=== PATIENT | female | born 1955 | race Caucasian/White ===

== ENCOUNTER → 2017-06-29 | Outpatient (CLI) | payer BC ==
[~2017-06-29] MED LIST: AMARYL4 MG PO; DIOVAN/HCT 12.51 TA1 PO; ESTRACE 1MG1 MG/TAB PO; ESTRADERM0.05 MG/24 TD; FLUOXETINE; GLUCOPHAGE850 MG/TAB PO; LEVEMIR100 U/ML SQ; LIPITOR 10MG10 MG PO; LOPID 600M600 MG/TAB PO; PRINIVIL20 MG PO; PROBIOTIC FORMU1 CAP PO; VIIBRYD40 MG PO
== END ==
LOC: MC.RAD 10:40
DX: Z12.31 Encounter for screening mammogram for malignant neoplasm of breast (principal)

== ENCOUNTER → 2018-11-10 | Outpatient (CLI) | payer MEDICARE, BC | LOC: MC.RAD 12:50 | DX: Z12.31 Encounter for screening mammogram for malignant neoplasm of breast (principal) ==

== ENCOUNTER 2019-11-15 10:15 | Outpatient (CLI) | payer MEDICARE, BC ==
[~2019-11-15] VITALS: Ht 157.5 cm; Wt 84.1 kg
[~2019-11-15 10:15] MED LIST changes: +ESTRACE0.5 MG PO; -ESTRADERM0.05 MG/24 TD; +GLUCOPHAGE500 MG/TAB PO; -GLUCOPHAGE850 MG/TAB PO
[2019-11-15] MEDS ORDERED: TRESIBA FL100 UNIT/1 SQ (10:28)
[2019-11-15] MEDS ORDERED: NOVOLOG FLEX100 U/ML SQ (10:30)
[2019-11-15] MEDS ORDERED: LIPITOR20 MG PO (10:30)
[2019-11-15] MEDS ORDERED: PROZAC 20MG20 MG PO (10:31)
[2019-11-15 10:34] VITALS: BP 137/84; PULSE 96; TEMP 98
[2019-11-15 12:19] VITALS: BP 119/71; PULSE 79
== END 2019-11-15 14:46 | disposition home or self-care (01) ==
LOC: EUO 10:15
DX: E86.0 Dehydration (principal)
CPT/HCPCS: J7030

== ENCOUNTER → 2020-05-02 | Outpatient (CLI) | payer MEDICARE, BC ==
[~2020-05-02] MED LIST changes: +LIPITOR20 MG PO; +NOVOLOG FLEX100 U/ML SQ; +PROZAC 20MG20 MG PO; +TRESIBA FL100 UNIT/1 SQ
== END ==
LOC: MC.RAD 14:55
DX: Z12.31 Encounter for screening mammogram for malignant neoplasm of breast (principal)

== ENCOUNTER 2021-01-02 11:15 | Inpatient (IN) | payer MEDICARE, BC ==
[~2021-01-02] VITALS: Ht 157.5 cm; Wt 83.8 kg
[2021-01-02 12:03] LABS: BASO % 0.2 % (0.0-2.0); GRAN % 68.4 % (42.2-75.2); HEMATOCRIT 38.9 % (37.0-47.0); HEMOGLOBIN 13.5 g/dl (12.5-16.0); LYMPH % 23.2 % (20.0-51.0); MEAN CELL VOLUME 87 fl (80.0-100.0); MEAN CORPUSCULAR HEMOGLOBIN 30 pg (27.0-31.0); MEAN CORPUSCULAR HGB CONC 35 g/dl (33.0-37.0); MEAN PLATELET VOLUME 10.3 fl (7.4-10.4); MONO # 0.4 (0.1-0.6); PLATELET COUNT 174 K/mm3 (130-400); RED BLOOD COUNT 4.45 M/mm3 (4.10-5.30); REDCELL DISTRIBUTION WIDTH-CV 11.7 % (11.5-14.5)
[2021-01-02 12:08] LABS: BILIRUBIN,TOTAL 0.8 mg/dL (0.0-1.0); CALCIUM 8.7 mg/dL (8.4-10.2); CREATININE, serum 0.79 (0.52-1.25); POTASSIUM 4.5 mmol/L (3.4-5.0); TOTAL PROTEIN 7.5 gm/dL (6.4-8.2)
[2021-01-02 15:45] VITALS: BP 138/42; PULSE 93; TEMP 98.5
[2021-01-02 16:35] LABS: C-REACTIVE PROTEIN 6.2 mg/dL (0.0-0.9); LACTATE DEHYDROGENASE 807 U/L (313-618)
[2021-01-02 16:44] LABS: TROPONIN-I < 0.012 ng/mL (0.000-0.035)
--- NOTE | 2021-01-02 18:39 | NUR ---
Patient alert and oriented. admitted from ER today due to SOA, malaise, hypoxia. Patient on 2L at 90% saturation. Patient report having fever at home. afebrile since admitted on Medical floor. NS 75mL/HR. ACHS. Patient have no question or concern at this time.
[2021-01-02 19:54] VITALS: BP 153/66; PULSE 70
[2021-01-02 20:48] VITALS: BP 132/58; PULSE 88; TEMP 98.2
[2021-01-03 00:11] VITALS: BP 123/51; PULSE 79; TEMP 98.1
--- NOTE | 2021-01-03 00:40 | NUR ---
Patient was sitting up in bed and finishing up her dinner upon enter the room at 19:40 pm. Patient ate 100% of dinner. Patient denies any chest pain or SOB while at rest. Respirations even and unlabored. No acute respiratory distress noted. Patient reports she gets SOB upon get up and ambulates in the room. Occasional non-productive cough noted at this time. Scheduled meds given per JAN. Call light within reach. Patient denies any needs at this time.
[2021-01-03 04:03] LABS: ARTERIAL BLD GAS O2 SATURATION 87.1 % (92-100); ARTERIAL BLD GAS TCO2 CT 22.6; ARTERIAL BLOOD GAS BASE EXCESS -2.3 (-2-2); ARTERIAL BLOOD GAS HCO3 21.5 meq/L (22-26); ARTERIAL BLOOD GAS PCO2 34.2 mmHg (35-45); ARTERIAL BLOOD GAS PO2 52.3 mmHg (80-100); ARTERIAL BLOOD GAS pH 7.42 (7.35-7.45)
[2021-01-03 04:54] VITALS: BP 139/68; PULSE 86; TEMP 98.2
--- NOTE | 2021-01-03 05:34 | NUR ---
Patient coughing on and off over the night. PRN cough med given per JAN. Called RT several times due to SPO2 drop to 86%.Currently on Airvo 50L and 74% Fio2. SPO2 93% at this time. Patient appears comfortable. Denies SOB or dyspnea. Call light within reach. Patient denies any needs at this time.
[2021-01-03 07:56] VITALS: BP 145/71; PULSE 82; TEMP 98
[2021-01-03 08:03] LABS: GRAN # 5.4 (1.4-6.5); GRAN % 84.8 % (42.2-75.2); HEMATOCRIT 35.5 % (37.0-47.0); HEMOGLOBIN 11.9 g/dl (12.5-16.0); LYMPH # 0.6 (1.2-3.4); LYMPH % 9.8 % (20.0-51.0); MEAN CELL VOLUME 90 fl (80.0-100.0); MEAN CORPUSCULAR HEMOGLOBIN 30 pg (27.0-31.0); MEAN CORPUSCULAR HGB CONC 34 g/dl (33.0-37.0); MEAN PLATELET VOLUME 9.9 fl (7.4-10.4); MONO # 0.3 (0.1-0.6); MONO % 5.1 % (1.7-9.3); PLATELET COUNT 226 K/mm3 (130-400); RED BLOOD COUNT 3.95 M/mm3 (4.10-5.30); REDCELL DISTRIBUTION WIDTH-CV 11.7 % (11.5-14.5)
[2021-01-03 08:32] LABS: CALCIUM 8.2 mg/dL (8.4-10.2); CREATININE, serum 0.73 (0.52-1.25); MAGNESIUM 1.7 mg/dL (1.6-2.3); POTASSIUM 4.8 mmol/L (3.4-5.0)
--- NOTE | 2021-01-03 11:15 | NUR ---
Regulatory Process Manager contacted patient's , Gerardo (ph#[phone]) to complete intake. Patient lives outside of [place] with her , daughter, and granddaughter. Patient sees Dr. Mcnair at [facility] for primary care and obtains medications at [facility] with no difficulties. Patient does not use any DME and is normally independent with ADLS. Gerardo believes patient completed DPOA-HC at [facility]. Gerardo also advised plan is for patient to return home upon discharge. ANAYA contacted Gerda at [facility] who will fax over DPOA-HC documents. Patient is currently on 50 liters of oxygen and ANAYA will continue to follow.
[2021-01-03 12:01] VITALS: BP 137/71; PULSE 87; TEMP 98
[2021-01-03 16:00] VITALS: BP 151/70; PULSE 92; TEMP 98.5
--- NOTE | 2021-01-03 19:11 | NUR ---
Odalys (CE) placed PICC in patient BOBBY. Patient had a ct chest for PE workup. Patient back in bed at this moment. patient report feeling exhausted after transfering for the procedure.
[2021-01-03 19:49] VITALS: BP 150/65; PULSE 94; TEMP 98.3
[2021-01-04 00:02] VITALS: BP 132/65; PULSE 92; TEMP 98.8
[2021-01-04 04:47] VITALS: BP 137/71; PULSE 87; TEMP 98.6
[2021-01-04 07:10] LABS: BASO % 0.1 % (0.0-2.0); GRAN # 9.9 (1.4-6.5); GRAN % 87.7 % (42.2-75.2); HEMOGLOBIN 11.3 g/dl (12.5-16.0); LYMPH # 0.7 (1.2-3.4); LYMPH % 6.4 % (20.0-51.0); MEAN CELL VOLUME 91 fl (80.0-100.0); MEAN CORPUSCULAR HEMOGLOBIN 30 pg (27.0-31.0); MEAN CORPUSCULAR HGB CONC 33 g/dl (33.0-37.0); MEAN PLATELET VOLUME 10.1 fl (7.4-10.4); MONO # 0.6 (0.1-0.6); PLATELET COUNT 266 K/mm3 (130-400); RED BLOOD COUNT 3.73 M/mm3 (4.10-5.30); REDCELL DISTRIBUTION WIDTH-CV 11.9 % (11.5-14.5)
[2021-01-04 07:27] LABS: CALCIUM 7.9 mg/dL (8.4-10.2); CREATININE, serum 0.85 (0.52-1.25); POTASSIUM 4.3 mmol/L (3.4-5.0)
[2021-01-04 07:35] LABS: HEMATOCRIT 33.8 % (37.0-47.0)
[2021-01-04 07:39] VITALS: BP 124/66; PULSE 85; TEMP 98.4
--- NOTE | 2021-01-04 08:45 | NUR ---
Shift assessment complete. Airvo at 50 lpm 67% with sats low to mid 90s. Reports SOA this AM, worse when up to restroom. Breathing at this time labored but normalized during assessment. Lung sounds coarse to upper lobes and diminished to lower lobes bilaterally. Heart RRR. A&Ox4. Right UA PICC w/good blood return and no S/S complication. Denies other needs at this time. Call light in reach.
[2021-01-04 11:56] VITALS: BP 130/66; PULSE 91; TEMP 98.9
[2021-01-04 16:28] VITALS: BP 145/66; PULSE 96; TEMP 99.1
--- NOTE | 2021-01-04 17:34 | NUR ---
Complained of severe headache this afternoon, completely relieved by tylenol. Also C/O some nausea relieved by zofran. Remains on airvo 50 lpm 67% with sats low 90s. Increased coughing throughout day, robitussin given.
[2021-01-04 20:24] VITALS: BP 146/58; PULSE 87; TEMP 98.5
[2021-01-05] VITALS (375 sets, daily range): BP systolic 90–184; BP diastolic 61–88; PULSE 78–101; TEMP 98.1–99.5; O2SAT 35–100
--- NOTE | 2021-01-05 02:57 | NUR ---
REPORT RECEIVED FROM DAY SHIFT NURSE. PT RESTING IN BED. O2 ON PER AIRVO. PICC WITH DUAL LUMENS IN UPPER RIGHT ARM. WRAPPED WITH GRACIE WRAP. SITE WITHOU S/S INFECTION. CALL LIGHT IN REACH.
--- NOTE | 2021-01-05 03:15 | NUR ---
SORT OF STRUGGLING WITH THE AIRVO AT 67%. SLIGHTLY EDEMATOUS ALL OVER. DENIES ANY NEEDS. SITS IN AN UPRIGHT POSITION ON HER BED. OCCASSIONAL DRY COUGH. CALL LIGHT IN REACH.
[2021-01-05 06:08] LABS: ARTERIAL BLD GAS O2 SATURATION 86.2 % (92-100); ARTERIAL BLD GAS TCO2 CT 20.7; ARTERIAL BLOOD GAS BASE EXCESS -3.8 (-2-2); ARTERIAL BLOOD GAS HCO3 19.7 meq/L (22-26); ARTERIAL BLOOD GAS PO2 49.7 mmHg (80-100); ARTERIAL BLOOD GAS pH 7.42 (7.35-7.45)
--- NOTE | 2021-01-05 10:14 | NUR ---
Assessment completed, alert/oriented, vital signs stable, patient reports not feeling any better today, lungs diminished throughtout/ no wheezing or crackles noted, she is on Airvo 60/90% and sats are >90%, she had low blood glucose this morning and required IV d50, stable now and has eaten breakfast, will continue to monitor, she denies needs
--- NOTE | 2021-01-05 14:10 | NUR ---
Arrived to ICU via wheel chair with RN and RT at side. Transfers to bed with SBA, monitor applied. With AirVo on, SpO2 70-74%. RT continues in room, switched to BiPap 15/07, rate 14, FiO2 100%. SpO2 now low 90's. Precedex drip started per Dr. Funk's order. Will re-evaluate
--- NOTE | 2021-01-05 14:57 | NUR ---
Orders for patient to transfer to ICU for Precedex gtt / continuous Bi-pap, I I have called and given report to receiving nurse PatriciaRN, respiratory therapy and myself transferred the patient to room ICU 06 by wheelchair and on bi-pap, checked blood sugar upon arrival as patient did not eat lunch and it was 55, I notifieid barrel filler head who advised to give 1/2 amp D50, patient cares handed off to ICU staff at this time
--- NOTE | 2021-01-05 17:13 | NUR ---
1625 Dr. Funk called with patient update, orders recieved from intubation. 1700 Patient agrees to intubation "I've got to do it to get better." RT and MIDLEVEL PROVIDER at bedside for procedure. 7.5 ET tube placed at 21 at teeth. + color change and breath sounds heard in all jnoes, condensation in tube. 1715 SpO2 60-70%, BP low. Levo orders recieved. Dr. Ruiz at bedside. Patient placed in reverse trendelenburg. Off vent and BVM used. 1745 BP stable at this time, IV sedation on at this time. Will continue to monior. 1802 Dr. Funk returns call to this RN. Reviewed events of intubation and BG result = 59. Given 1/2 Amp D50 and stop all insulin orders. Check BG Q2-3 hours until morning.
--- NOTE | 2021-01-05 17:15 | NUR ---
Sedation just started, no vacation at this time
--- NOTE | 2021-01-05 18:06 | NUR ---
PT INTUBATED WITH A 7.5 HI LO ET TUBE. PT SAT WAS LOW. AFTER ADMINISTERING LEVO AND DIPRIVAN AND SPO2 MONITORING ON THE FOREHEAD, WE WERE ABLE TO GET A GOOD SAT. PATIENT IS CURRENTLY RESTING ON THE VENBTILATOR AND STABLE.
[2021-01-05 19:43] LABS: ARTERIAL BLD GAS O2 SATURATION 90.9 % (92-100); ARTERIAL BLD GAS TCO2 CT 20.6; ARTERIAL BLOOD GAS HCO3 19.6 meq/L (22-26); ARTERIAL BLOOD GAS PO2 59.9 mmHg (80-100); ARTERIAL BLOOD GAS pH 7.37 (7.35-7.45)
--- NOTE | 2021-01-05 20:00 | NUR ---
Assessment complete. Pt is alert and responsive to voice on the ventilator. Follows commands appropriately. BOBBY PICC line infusing free of complications. Ritchie to DD is free of complications. Pt repositioned for comfort. Call light within reach.
[2021-01-06] VITALS (1008 sets, daily range): BP systolic 77–176; BP diastolic 46–84; PULSE 72–91; TEMP 97.6–98.6; O2SAT 67–100
[2021-01-06 05:39] LABS: ARTERIAL BLD GAS O2 SATURATION 89.2 % (92-100); ARTERIAL BLD GAS TCO2 CT 20.7; ARTERIAL BLOOD GAS HCO3 19.6 meq/L (22-26); ARTERIAL BLOOD GAS PO2 59.6 mmHg (80-100); ARTERIAL BLOOD GAS pH 7.37 (7.35-7.45)
[2021-01-06 06:09] LABS: BASO % 0.1 % (0.0-2.0); EOS % 0.1 % (0-4.0); GRAN # 12.6 (1.4-6.5); GRAN % 88.8 % (42.2-75.2); HEMOGLOBIN 11.8 g/dl (12.5-16.0); LYMPH # 0.8 (1.2-3.4); LYMPH % 5.7 % (20.0-51.0); MEAN CELL VOLUME 90 fl (80.0-100.0); MEAN CORPUSCULAR HEMOGLOBIN 31 pg (27.0-31.0); MEAN CORPUSCULAR HGB CONC 35 g/dl (33.0-37.0); MEAN PLATELET VOLUME 10.5 fl (7.4-10.4); MONO # 0.6 (0.1-0.6); MONO % 4.5 % (1.7-9.3); RED BLOOD COUNT 3.79 M/mm3 (4.10-5.30); REDCELL DISTRIBUTION WIDTH-CV 12.3 % (11.5-14.5)
[2021-01-06 06:12] LABS: ALBUMIN 2.8 gm/dL (3.5-5.0); BILIRUBIN,TOTAL 0.5 mg/dL (0.0-1.0); CALCIUM 7.5 mg/dL (8.4-10.2); CREATININE, serum 1.03 (0.52-1.25); MAGNESIUM 1.7 mg/dL (1.6-2.3); PHOSPHOROUS 4.1 mg/dL (2.5-4.5); POTASSIUM 4.6 mmol/L (3.4-5.0); TOTAL PROTEIN 5.8 gm/dL (6.4-8.2)
[2021-01-06 06:38] LABS: HEMATOCRIT 34.1 % (37.0-47.0)
[2021-01-06 06:39] LABS: PLATELET COUNT 134 K/mm3 (130-400)
--- NOTE | 2021-01-06 06:45 | NUR ---
Sedation vacation done this morning and pt is responsive to voice and follows commands.
--- NOTE | 2021-01-06 09:30 | NUR ---
CALLS FOR UPDATE. UPDATE GIVEN. DR. CELESTIN ON UNIT AND WILL SEE PATIENT SOON. IS TEARFUL DURING PHONE CALL. EMOTIONAL SUPPORT GIVEN AND HE IS ENCOURAGED TO CALL AGAIN FOR UPDATES ANY TIME.
--- NOTE | 2021-01-06 16:00 | NUR ---
UPDATE GIVEN TO . PATIENT REMAINS MAX FIO2 ON VENT WITH LEVOPHED TO SUPPORT THE BP. HE IS TEARFUL ON THE PHONE. EMOTIONAL SUPPORT GIVEN.
--- NOTE | 2021-01-06 17:00 | NUR ---
Sedation vacation not attempted this evening. Patient was not well sedated when coming on shift this morning. She woke very easily to any stimulation and responded appropriately to this RN when i spoke to her and asked her to do simple things. Throughout the shift, the patient was stacking her breaths on the ventilator, with high peak pressures. After increasing sedation, levophed had to be increased to help support low blood pressures. After adequately sedated, the patient continued to overbreathe the vent and cause it to alarm. PRN vecuronium administered per Dr. Funk order. Will continue to monitor.
--- NOTE | 2021-01-06 20:00 | NUR ---
Assessment complete. Pt is resting comfortably on ventilator. BOBBY PICC line infusing free of complications. Ritchie to DD is free of complications. Pt repositioned in bed for comfort. Call light within reach.
[2021-01-07] VITALS (1358 sets, daily range): BP systolic 85–141; BP diastolic 51–74; PULSE 64–97; TEMP 96.7–98; O2SAT 76–100
[2021-01-07 06:15] LABS: ALBUMIN 2.8 gm/dL (3.5-5.0); BILIRUBIN,TOTAL 0.4 mg/dL (0.0-1.0); CALCIUM 7.8 mg/dL (8.4-10.2); CREATININE, serum 1.13 (0.52-1.25); MAGNESIUM 2.1 mg/dL (1.6-2.3); PHOSPHOROUS 4.8 mg/dL (2.5-4.5); POTASSIUM 4.8 mmol/L (3.4-5.0); TOTAL PROTEIN 5.8 gm/dL (6.4-8.2)
[2021-01-07 06:26] LABS: ARTERIAL BLD GAS O2 SATURATION 95.6 % (92-100); ARTERIAL BLD GAS TCO2 CT 20.6; ARTERIAL BLOOD GAS BASE EXCESS -7.5 (-2-2); ARTERIAL BLOOD GAS HCO3 19.3 meq/L (22-26); ARTERIAL BLOOD GAS PCO2 43.6 mmHg (35-45); ARTERIAL BLOOD GAS PO2 85.1 mmHg (80-100); ARTERIAL BLOOD GAS pH 7.26 (7.35-7.45)
--- NOTE | 2021-01-07 06:49 | NUR ---
PT NOT ON WEANING TRIAL SHE DOES NOT QUALIFY FOR WEAN TRIAL PEEP AND FI02 IS TOO HIGH. PT ON DOCUMENTED SETTINGS YULIA WELL WITH NO DISTRESS NOTED AT THIS TIME
[2021-01-07 06:58] LABS: MEAN CELL VOLUME 90 fl (80.0-100.0); MEAN CORPUSCULAR HGB CONC 34 g/dl (33.0-37.0); MEAN PLATELET VOLUME 10.3 fl (7.4-10.4); PLATELET COUNT 70 K/mm3 (130-400); RED BLOOD COUNT 5.81 M/mm3 (4.10-5.30); REDCELL DISTRIBUTION WIDTH-CV 12.5 % (11.5-14.5)
[2021-01-07 06:59] LABS: HEMATOCRIT 52.5 % (37.0-47.0); HEMOGLOBIN 17.8 g/dl (12.5-16.0); MEAN CORPUSCULAR HEMOGLOBIN 31 pg (27.0-31.0)
[2021-01-07 08:02] LABS: BAND 1 % (0-10); LYMPHOCYTE 5 % (20.0-51.0); NEUTROPHILS 92 % (42.0-75.2)
[2021-01-07 08:03] LABS: PLATELET ESTIMATE DECREASED (NORMAL)
[2021-01-07 10:41] LABS: MEAN CELL VOLUME 90 fl (80.0-100.0); MEAN CORPUSCULAR HGB CONC 34 g/dl (33.0-37.0); MEAN PLATELET VOLUME 10.8 fl (7.4-10.4); PLATELET COUNT 129 K/mm3 (130-400); REDCELL DISTRIBUTION WIDTH-CV 12.3 % (11.5-14.5)
[2021-01-07 10:44] LABS: HEMATOCRIT 34.9 % (37.0-47.0); HEMOGLOBIN 11.8 g/dl (12.5-16.0); MEAN CORPUSCULAR HEMOGLOBIN 30 pg (27.0-31.0)
[2021-01-07 11:18] LABS: BAND 2 % (0-10); LYMPHOCYTE 1 % (20.0-51.0); METAMYELOCYTE 1 % (0-0); NEUTROPHILS 94 % (42.0-75.2)
[2021-01-07 11:19] LABS: PLATELET ESTIMATE DECREASED (NORMAL); TOXIC GRANULATION PRESENT
--- NOTE | 2021-01-07 12:42 | NUR ---
Chaplain hanna for patient while standing outside of door.
[2021-01-07 14:21] LABS: ARTERIAL BLD GAS O2 SATURATION 93.8 % (92-100); ARTERIAL BLD GAS TCO2 CT 19.5; ARTERIAL BLOOD GAS HCO3 18.1 meq/L (22-26); ARTERIAL BLOOD GAS PCO2 43.9 mmHg (35-45); ARTERIAL BLOOD GAS PO2 79.2 mmHg (80-100); ARTERIAL BLOOD GAS pH 7.23 (7.35-7.45)
--- NOTE | 2021-01-07 17:00 | NUR ---
No sedation vacation done at this time, as patient is prone. Did decrease sedation this morning and patient tolerated poorly
--- NOTE | 2021-01-07 20:00 | NUR ---
Assessment complete. Pt is prone and sedated on the ventilator. BOBBY PICC line infusing free of complications. RR artline is free of complications. Ritchie to DD is free of complications.
[2021-01-08] VITALS (1412 sets, daily range): BP systolic 87–125; BP diastolic 50–63; PULSE 74–99; TEMP 97.5–98.3; O2SAT 78–100
--- NOTE | 2021-01-08 01:10 | NUR ---
Convalescent plasma started at this time. Unit verified with BJ Tomlinson. Will remain at the bedside for the first 15 minutes to monitor for adverse reactions.
[2021-01-08 06:00] LABS: HEMOGLOBIN 10.6 g/dl (12.5-16.0); MEAN CELL VOLUME 91 fl (80.0-100.0); MEAN CORPUSCULAR HEMOGLOBIN 31 pg (27.0-31.0); MEAN CORPUSCULAR HGB CONC 34 g/dl (33.0-37.0); MEAN PLATELET VOLUME 11.2 fl (7.4-10.4); PLATELET COUNT 90 K/mm3 (130-400); RED BLOOD COUNT 3.46 M/mm3 (4.10-5.30); REDCELL DISTRIBUTION WIDTH-CV 12.4 % (11.5-14.5)
[2021-01-08 06:02] LABS: ARTERIAL BLD GAS O2 SATURATION 97.7 % (92-100); ARTERIAL BLOOD GAS BASE EXCESS -7.6 (-2-2); ARTERIAL BLOOD GAS HCO3 17.9 meq/L (22-26); ARTERIAL BLOOD GAS PCO2 36.5 mmHg (35-45); ARTERIAL BLOOD GAS PO2 109.3 mmHg (80-100); ARTERIAL BLOOD GAS pH 7.31 (7.35-7.45)
[2021-01-08 06:13] LABS: HEMATOCRIT 31.4 % (37.0-47.0)
[2021-01-08 06:18] LABS: CALCIUM 7.4 mg/dL (8.4-10.2); CREATININE, serum 0.89 (0.52-1.25); MAGNESIUM 2.1 mg/dL (1.6-2.3); POTASSIUM 4.7 mmol/L (3.4-5.0)
[2021-01-08 07:38] LABS: BAND 4 % (0-10); BURR CELLS 2+; LYMPHOCYTE 10 % (20.0-51.0); METAMYELOCYTE 1 % (0-0); NEUTROPHILS 84 % (42.0-75.2); OVALOCYTES 1+; PLATELET ESTIMATE DECREASED (NORMAL); TEAR DROP CELLS 1+
--- NOTE | 2021-01-08 09:00 | NUR ---
plaed on airvo 50l 69% spo2 92%
--- NOTE | 2021-01-08 19:46 | NUR ---
Received report from BJ Gomez. Patient in airborne precautions d/t positive covid status. Sedated and intubated and in prone position. VSS. All questions answered and all medications verified. Will resume care at this time.
[2021-01-09] VITALS (836 sets, daily range): BP systolic 93–150; BP diastolic 41–70; PULSE 76–112; TEMP 98.1–99; O2SAT 81–100
--- NOTE | 2021-01-09 05:38 | NUR ---
No sedation vacation attempted d/t patient being in prone position.
[2021-01-09 05:44] LABS: HEMOGLOBIN 10.5 g/dl (12.5-16.0); MEAN CELL VOLUME 92 fl (80.0-100.0); MEAN CORPUSCULAR HEMOGLOBIN 30 pg (27.0-31.0); MEAN CORPUSCULAR HGB CONC 33 g/dl (33.0-37.0); MEAN PLATELET VOLUME 10.7 fl (7.4-10.4); PLATELET COUNT 104 K/mm3 (130-400); RED BLOOD COUNT 3.47 M/mm3 (4.10-5.30); REDCELL DISTRIBUTION WIDTH-CV 12.4 % (11.5-14.5)
[2021-01-09 05:59] LABS: CALCIUM 7.9 mg/dL (8.4-10.2); CREATININE, serum 1.03 (0.52-1.25); MAGNESIUM 2.7 mg/dL (1.6-2.3); PHOSPHOROUS 4.1 mg/dL (2.5-4.5)
[2021-01-09 06:03] LABS: BAND 9 % (0-10); LYMPHOCYTE 2 % (20.0-51.0); NEUTROPHILS 87 % (42.0-75.2); PLATELET ESTIMATE DECREASED (NORMAL)
[2021-01-09 06:07] LABS: ARTERIAL BLOOD GAS PCO2 50.6 mmHg (35-45)
[2021-01-09 06:08] LABS: ARTERIAL BLD GAS O2 SATURATION 92.2 % (92-100); ARTERIAL BLD GAS TCO2 CT 25.7; ARTERIAL BLOOD GAS BASE EXCESS -2.6 (-2-2); ARTERIAL BLOOD GAS HCO3 24.2 meq/L (22-26)
--- NOTE | 2021-01-09 08:00 | NUR ---
Patient resting in bed prone. Repositioned to supine. Tolerated well. Patient drowsy, minimal response to stimuli. Assessment completed and charted.
[2021-01-09 13:59] LABS: ARTERIAL BLD GAS O2 SATURATION 94.5 % (92-100); ARTERIAL BLD GAS TCO2 CT 26.1; ARTERIAL BLOOD GAS BASE EXCESS -1.1 (-2-2); ARTERIAL BLOOD GAS HCO3 24.7 meq/L (22-26); ARTERIAL BLOOD GAS PO2 77.1 mmHg (80-100); ARTERIAL BLOOD GAS pH 7.35 (7.35-7.45)
--- NOTE | 2021-01-09 17:00 | NUR ---
Patient placed prone with assistance of PT and OT. Patient tolerated well.
--- NOTE | 2021-01-09 17:39 | NUR ---
Sedation vacation not done due to patient waking easily with stimulation. Patient tracks with eyes. Patient stacks breathing on ventilator when less sedated. Sedation vacation avoid this evening due to proning and wanting to keep patient comfortable during this process.
--- NOTE | 2021-01-09 17:48 | NUR ---
PT IS PRONE AT THIS TIME
--- NOTE | 2021-01-09 19:09 | NUR ---
Report given to BJ Newton
--- NOTE | 2021-01-09 20:00 | NUR ---
Assessment complete. Pt is on ventilator. BOBBY PICC line intact. Ritchie to DD is free of complications. Pt repositioned for comfort.
[2021-01-10] VITALS (637 sets, daily range): BP systolic 113–131; BP diastolic 60–69; PULSE 82–101; TEMP 98–100.6; O2SAT 87–100
--- NOTE | 2021-01-10 05:00 | NUR ---
NO SEDATION VACATION PERFORMED PT IS PRONE
[2021-01-10 05:34] LABS: MEAN CELL VOLUME 91 fl (80.0-100.0); MEAN CORPUSCULAR HGB CONC 33 g/dl (33.0-37.0); PLATELET COUNT 98 K/mm3 (130-400); REDCELL DISTRIBUTION WIDTH-CV 12.4 % (11.5-14.5)
[2021-01-10 05:36] LABS: HEMATOCRIT 29.9 % (37.0-47.0); HEMOGLOBIN 9.9 g/dl (12.5-16.0); MEAN CORPUSCULAR HEMOGLOBIN 30 pg (27.0-31.0)
[2021-01-10 05:45] LABS: ARTERIAL BLD GAS O2 SATURATION 94.1 % (92-100); ARTERIAL BLD GAS TCO2 CT 28.2; ARTERIAL BLOOD GAS BASE EXCESS 1.4 (-2-2); ARTERIAL BLOOD GAS HCO3 26.8 meq/L (22-26); ARTERIAL BLOOD GAS PCO2 45.8 mmHg (35-45); ARTERIAL BLOOD GAS PO2 74.7 mmHg (80-100); ARTERIAL BLOOD GAS pH 7.39 (7.35-7.45)
[2021-01-10 05:46] LABS: CALCIUM 8.1 mg/dL (8.4-10.2); CREATININE, serum 1.03 (0.52-1.25); MAGNESIUM 3.1 mg/dL (1.6-2.3); PHOSPHOROUS 3.9 mg/dL (2.5-4.5); POTASSIUM 4.9 mmol/L (3.4-5.0)
[2021-01-10 05:53] LABS: BAND 5 % (0-10); EOSINOPHIL 1 % (0-4); LYMPHOCYTE 8 % (20.0-51.0); NEUTROPHILS 84 % (42.0-75.2)
[2021-01-10 05:54] LABS: PLATELET ESTIMATE DECREASED (NORMAL)
--- NOTE | 2021-01-10 07:22 | NUR ---
Liliam report given to BJ Delgado.
[2021-01-10 12:28] LABS: MUCOUS Present /lpf; PH 6 (5-8); SQUAMOUS EPITHELIAL None Seen /hpf; URINE APPEARANCE Clear; URINE BACTERIA Rare /hpf; URINE BILIRUBIN Negative (NEGATIVE); URINE BLOOD Negative (NEGATIVE); URINE COLOR Yellow; URINE GLUCOSE Negative (NEGATIVE); URINE KETONE Negative (NEGATIVE); URINE LEUKOCYTE ESTERASE Negative (NEGATIVE); URINE NITRATE Negative (NEGATIVE); URINE PROTEIN(semi-quant) Negative (NEGATIVE); URINE UROBILINOGEN Negative (NEGATIVE); URINE WBC 0-2 /hpf
[2021-01-10 12:33] LABS: COLLECTION METHOD CATHETER
[2021-01-10 12:38] LABS: URINE PROTEIN:CREAT RATIO 0.13 (0.00-0.14)
--- NOTE | 2021-01-10 19:00 | NUR ---
Report given to BJ Newton .
--- NOTE | 2021-01-10 20:00 | NUR ---
Assessment complete. Pt is on ventilator. BOBBY PICC line intact. Ritchie to DD is free of complications. Pt repositioned for comfort. Call light within reach.
[2021-01-11] VITALS (1422 sets, daily range): BP systolic 114–143; BP diastolic 63–73; PULSE 80–118; TEMP 96–100.2; O2SAT 70–100
--- NOTE | 2021-01-11 | NUR ---
TF HELD DUE TO HIGH RESIDUAL
--- NOTE | 2021-01-11 05:00 | NUR ---
NO SEDATION VACATION PERFORMED THE PT IS PRONE
[2021-01-11 05:29] LABS: MEAN CELL VOLUME 91 fl (80.0-100.0); MEAN CORPUSCULAR HGB CONC 33 g/dl (33.0-37.0); MEAN PLATELET VOLUME 11.4 fl (7.4-10.4); PLATELET COUNT 105 K/mm3 (130-400); RED BLOOD COUNT 3.08 M/mm3 (4.10-5.30); REDCELL DISTRIBUTION WIDTH-CV 12.2 % (11.5-14.5)
[2021-01-11 05:33] LABS: HEMOGLOBIN 9.3 g/dl (12.5-16.0); MEAN CORPUSCULAR HEMOGLOBIN 30 pg (27.0-31.0)
[2021-01-11 05:37] LABS: CALCIUM 8.2 mg/dL (8.4-10.2); CREATININE, serum 0.93 (0.52-1.25); MAGNESIUM 3.4 mg/dL (1.6-2.3); PHOSPHOROUS 4.4 mg/dL (2.5-4.5); POTASSIUM 4.8 mmol/L (3.4-5.0)
[2021-01-11 05:47] LABS: ARTERIAL BLD GAS O2 SATURATION 96.7 % (92-100); ARTERIAL BLD GAS TCO2 CT 24.9; ARTERIAL BLOOD GAS BASE EXCESS -0.8 (-2-2); ARTERIAL BLOOD GAS HCO3 23.7 meq/L (22-26); ARTERIAL BLOOD GAS PCO2 38.5 mmHg (35-45); ARTERIAL BLOOD GAS PO2 95.7 mmHg (80-100); ARTERIAL BLOOD GAS pH 7.41 (7.35-7.45)
[2021-01-11 05:48] LABS: BAND 14 % (0-10); EOSINOPHIL 1 % (0-4); LYMPHOCYTE 4 % (20.0-51.0); METAMYELOCYTE 1 % (0-0); NEUTROPHILS 79 % (42.0-75.2); PLATELET ESTIMATE DECREASED (NORMAL)
[2021-01-11 05:49] LABS: SCHISTOCYTES 1+
--- NOTE | 2021-01-11 07:10 | NUR ---
Bedside shift report given to BJ Delgado.
--- NOTE | 2021-01-11 07:12 | NUR ---
PT ON DOCUMENTED SETTINGS YULIA WELL WITH NO DISTRESS NOTED AT THIS TIME
--- NOTE | 2021-01-11 19:20 | NUR ---
Received report from BJ Delgado.
--- NOTE | 2021-01-11 19:21 | NUR ---
Report given to BJ Farrell. care relinquished at this time.
--- NOTE | 2021-01-11 21:54 | NUR ---
Tube feed residuals at this time total 125mL. Feeds increased from 30mL/hr to goal of 40mL/hr.
[2021-01-12] VITALS (1105 sets, daily range): BP systolic 128–162; BP diastolic 65–90; PULSE 83–118; TEMP 97.2–100.6; O2SAT 60–100
[2021-01-12 05:17] LABS: ARTERIAL BLD GAS O2 SATURATION 91.4 % (92-100); ARTERIAL BLD GAS TCO2 CT 30.6; ARTERIAL BLOOD GAS BASE EXCESS 4.1 (-2-2); ARTERIAL BLOOD GAS HCO3 29.2 meq/L (22-26); ARTERIAL BLOOD GAS PCO2 45.9 mmHg (35-45); ARTERIAL BLOOD GAS PO2 63.6 mmHg (80-100); ARTERIAL BLOOD GAS pH 7.42 (7.35-7.45)
--- NOTE | 2021-01-12 05:17 | NUR ---
Patient in prone position. No sedation vacation performed.
--- NOTE | 2021-01-12 05:41 | NUR ---
Spoke with [facility] physician, Dr. Mannie Deleon, regarding patient's blood glucose > 300 at 2000, 0000, and 0400. Patient has received 10 units of Novolog per sliding-scale orders at each check, with little to no effect. This RN initiated discussion of possibly initiating insulin drip. Per Dr. Deleon, to administer 10 units of Levemir once, now; do not initiate insulin drip at this time.
[2021-01-12 05:43] LABS: HEMOGLOBIN 10.1 g/dl (12.5-16.0); MEAN CELL VOLUME 94 fl (80.0-100.0); MEAN CORPUSCULAR HEMOGLOBIN 30 pg (27.0-31.0); MEAN CORPUSCULAR HGB CONC 32 g/dl (33.0-37.0); MEAN PLATELET VOLUME 12.1 fl (7.4-10.4); PLATELET COUNT 113 K/mm3 (130-400); RED BLOOD COUNT 3.37 M/mm3 (4.10-5.30); REDCELL DISTRIBUTION WIDTH-CV 12.2 % (11.5-14.5)
[2021-01-12 05:48] LABS: HEMATOCRIT 31.7 % (37.0-47.0)
[2021-01-12 05:59] LABS: CALCIUM 8.3 mg/dL (8.4-10.2); CREATININE, serum 0.77 (0.52-1.25); MAGNESIUM 2.9 mg/dL (1.6-2.3); PHOSPHOROUS 4.3 mg/dL (2.5-4.5); POTASSIUM 5.6 mmol/L (3.4-5.0)
[2021-01-12 07:07] LABS: BAND 21 % (0-10); LYMPHOCYTE 7 % (20.0-51.0); NEUTROPHILS 70 % (42.0-75.2); PLATELET ESTIMATE DECREASED (NORMAL)
--- NOTE | 2021-01-12 07:32 | NUR ---
Report given to BJ Ruvalcaba, and BJ Pascual.
--- NOTE | 2021-01-12 08:30 | NUR ---
Resting in bed. Tolerating vent. Assessment completed and charted. Recently turned from prone position. Will monitor.
--- NOTE | 2021-01-12 12:06 | NUR ---
Patient propofol increased due to stacking breaths and setting off alarms on ventilator.
--- NOTE | 2021-01-12 19:28 | NUR ---
Report given to Jami LORENZO
--- NOTE | 2021-01-12 19:45 | NUR ---
Received report from BJ Pascual. Patient in prone position, tolerating position and ventilator well. Vitals within normal limits. Patient repositioned with assistance of RT. No further needs noted.
[2021-01-13] VITALS (1060 sets, daily range): BP systolic 81–153; BP diastolic 58–82; PULSE 89–131; TEMP 98.4–100.7; O2SAT 73–100
--- NOTE | 2021-01-13 01:00 | NUR ---
Patient's last five hourly BG checks within goal range of 140-180; no titration required according to order set. Checks will be reduced to every two hours, with the next occuring at 0230.
--- NOTE | 2021-01-13 05:00 | NUR ---
Patient prone; no sedation vacation performed at this time.
[2021-01-13 05:01] LABS: ARTERIAL BLD GAS O2 SATURATION 86.7 % (92-100); ARTERIAL BLD GAS TCO2 CT 31.4; ARTERIAL BLOOD GAS BASE EXCESS 5.1 (-2-2); ARTERIAL BLOOD GAS PCO2 45.5 mmHg (35-45); ARTERIAL BLOOD GAS PO2 52.5 mmHg (80-100); ARTERIAL BLOOD GAS pH 7.44 (7.35-7.45)
[2021-01-13 06:58] LABS: HEMATOCRIT 31.3 % (37.0-47.0); HEMOGLOBIN 9.9 g/dl (12.5-16.0); MEAN CELL VOLUME 95 fl (80.0-100.0); MEAN CORPUSCULAR HEMOGLOBIN 30 pg (27.0-31.0); MEAN CORPUSCULAR HGB CONC 32 g/dl (33.0-37.0); MEAN PLATELET VOLUME 12.3 fl (7.4-10.4); PLATELET COUNT 125 K/mm3 (130-400); RED BLOOD COUNT 3.31 M/mm3 (4.10-5.30); REDCELL DISTRIBUTION WIDTH-CV 12.3 % (11.5-14.5)
[2021-01-13 07:02] LABS: CALCIUM 8.2 mg/dL (8.4-10.2); CREATININE, serum 0.85 (0.52-1.25); MAGNESIUM 2.7 mg/dL (1.6-2.3); PHOSPHOROUS 4.8 mg/dL (2.5-4.5); POTASSIUM 5.3 mmol/L (3.4-5.0)
[2021-01-13 07:20] LABS: BAND 41 % (0-10); EOSINOPHIL 6 % (0-4); LYMPHOCYTE 5 % (20.0-51.0); MYELOCYTE 1 % (0-0); NEUTROPHILS 42 % (42.0-75.2); PLATELET ESTIMATE DECREASED (NORMAL)
--- NOTE | 2021-01-13 09:15 | NUR ---
Assessment completed and charted. Patient repositioned. Will continue to monitor.
--- NOTE | 2021-01-13 12:45 | NUR ---
Dr. Valdovinos has extensive talk with , Gerardo, on the phone about this patient. He explains all the therapies and efforts made to improve her condition. He also explains her prognosis at this point and time and what a code situation would do to her and what her probable outcome would be. It is decided that the patient will be DNR from this time.
[2021-01-13 14:05] LABS: COLLECTION METHOD CATHETER
[2021-01-13 14:32] LABS: AMORPHOUS CRYSTAL Present /uL; MUCOUS Present /lpf; PH 5 (5-8); SQUAMOUS EPITHELIAL 0-2 /hpf; URINE APPEARANCE Cloudy; URINE BACTERIA Rare /hpf; URINE BILIRUBIN Negative (NEGATIVE); URINE BLOOD 3+ (NEGATIVE); URINE COLOR Amber; URINE GLUCOSE Negative (NEGATIVE); URINE KETONE Negative (NEGATIVE); URINE LEUKOCYTE ESTERASE Negative (NEGATIVE); URINE NITRATE Negative (NEGATIVE); URINE PROTEIN(semi-quant) 2+ (NEGATIVE); URINE RBC >50 /hpf; URINE UROBILINOGEN Negative (NEGATIVE)
--- NOTE | 2021-01-13 17:17 | NUR ---
Profopol stopped at 1230 and fentanyl stopped at 1630. Patient opens eyes no other response at this time. Will leave sedation off to assess for possible CT per Dr. Valdovinos.
--- NOTE | 2021-01-13 21:00 | NUR ---
Flutters eyes when name is called and minimal response to pain noted. Otherwise does not respond purposefully to any questions or commands.
--- NOTE | 2021-01-13 21:55 | NUR ---
CHANGED TO HME HUMIDIFICATION AT THIS TIME.
[2021-01-14] VITALS (1411 sets, daily range): BP systolic 98–195; BP diastolic 59–91; PULSE 105–130; TEMP 98.9–100.9; O2SAT 73–100
--- NOTE | 2021-01-14 00:11 | NUR ---
Patient breath stacking and Peak pressures up to 40 and venitlator occasionally alarming "high peak pressure". PRN vecuronium administered at this time. Will continue to monitor.
--- NOTE | 2021-01-14 02:25 | NUR ---
Patient's o2 82-85%. RT at bedside. Sunni notified ; will obtain and xray, ABG and can administer an additional dose of vecuronium at this time.
[2021-01-14 02:26] LABS: ARTERIAL BLD GAS TCO2 CT 32.1; ARTERIAL BLOOD GAS BASE EXCESS 4.9 (-2-2); ARTERIAL BLOOD GAS HCO3 30.6 meq/L (22-26); ARTERIAL BLOOD GAS PCO2 50.3 mmHg (35-45); ARTERIAL BLOOD GAS PO2 55.9 mmHg (80-100)
--- NOTE | 2021-01-14 04:41 | NUR ---
T100.7; urine sample showing urine WBC 20-50. Sunni jauregui notified; will initiate antibiotic coverage and urine culture at this time.
--- NOTE | 2021-01-14 05:00 | NUR ---
Sedation vacation not performed due to receiving IV PRN vecuronium push recently.
[2021-01-14 05:28] LABS: BASO % 0.1 % (0.0-2.0); EOS # 0.2 (0.0-0.7); EOS % 1.4 % (0-4.0); GRAN # 11.2 (1.4-6.5); GRAN % 89.1 % (42.2-75.2); HEMATOCRIT 33.8 % (37.0-47.0); HEMOGLOBIN 10.1 g/dl (12.5-16.0); LYMPH # 0.8 (1.2-3.4); LYMPH % 6.4 % (20.0-51.0); MEAN CORPUSCULAR HEMOGLOBIN 30 pg (27.0-31.0); MEAN CORPUSCULAR HGB CONC 30 g/dl (33.0-37.0); MEAN PLATELET VOLUME 12.4 fl (7.4-10.4); MONO # 0.2 (0.1-0.6); MONO % 1.8 % (1.7-9.3); PLATELET COUNT 118 K/mm3 (130-400); RED BLOOD COUNT 3.33 M/mm3 (4.10-5.30); REDCELL DISTRIBUTION WIDTH-CV 12.6 % (11.5-14.5)
[2021-01-14 05:29] LABS: MEAN CELL VOLUME 102 fl (80.0-100.0)
[2021-01-14 05:35] LABS: ALBUMIN 2.7 gm/dL (3.5-5.0); BILIRUBIN,TOTAL 0.5 mg/dL (0.0-1.0); CALCIUM 8.1 mg/dL (8.4-10.2); CREATININE, serum 1.06 (0.52-1.25); MAGNESIUM 2.7 mg/dL (1.6-2.3); PHOSPHOROUS 5.5 mg/dL (2.5-4.5); POTASSIUM 4.4 mmol/L (3.4-5.0); TOTAL PROTEIN 6.1 gm/dL (6.4-8.2)
[2021-01-14 05:42] LABS: PRE ALBUMIN 10.1 mg/dL (17.6-36.0)
[2021-01-14 05:47] LABS: ARTERIAL BLD GAS O2 SATURATION 94.2 % (92-100); ARTERIAL BLOOD GAS BASE EXCESS 2.9 (-2-2); ARTERIAL BLOOD GAS HCO3 29.4 meq/L (22-26); ARTERIAL BLOOD GAS PCO2 54.3 mmHg (35-45); ARTERIAL BLOOD GAS PO2 76.1 mmHg (80-100); ARTERIAL BLOOD GAS pH 7.35 (7.35-7.45)
--- NOTE | 2021-01-14 14:32 | NUR ---
Miya Mills, social work msw, and palliative care nurse called on speaker phone to talk with Gerardo, , about goals of care and pt guarded to poor prognosis. She was made a DNR over the weekend after talked with Dr Valdovinos. Gerardo was very quick to say that he does not want her to suffer unnecessarily but is not ready to "give up" on her. The will have been 49 years in February. He has been talking with her family and their children as things have progressed. Currently he would like to continue care as is. He does understand that she is not responding as well neurologically as we would hope and that her 02 demand is at 100%. We did talk about that her length of recovery would span multiple months if she is able to get past her current state. he does realize that we are doing everything that we can to promote her recovery but that things are not improving. He will continue to check in regularly but wants to keep trying for a while longer.
--- NOTE | 2021-01-14 14:39 | NUR ---
Dividend Clerk confirmed that patient's DPOA-HC document was on patient's chart. Gerardo Hopkins () and Luis Hopkins are designated. Palliative consult was ordered for patient. ANAYA and Palliative RN, Lolis contacted patient's , Gerardo to discuss goals of care. Gerardo advised he is not sure what his decision is at this point and isn't sure he wants to give up yet. Gerardo states he has been consulting his children and patient's siblings. ANAYA will continue to follow.
--- NOTE | 2021-01-14 17:00 | NUR ---
No sedation vacation at this time, had to increase Versed dose prior to proning and PRN Vec dose given.
--- NOTE | 2021-01-14 19:20 | NUR ---
Report received from BJ Gomez. Patient care transfered.
[2021-01-15] VITALS (1327 sets, daily range): BP systolic 81–154; BP diastolic 52–97; PULSE 98–131; TEMP 98–99.4; O2SAT 81–100
--- NOTE | 2021-01-15 00:10 | NUR ---
PRN vecuronium administered due to stacked breaths and elevated peak pressures. RT notified.
[2021-01-15 04:17] LABS: ARTERIAL BLD GAS TCO2 CT 32.6; ARTERIAL BLOOD GAS BASE EXCESS 4.4 (-2-2); ARTERIAL BLOOD GAS HCO3 30.8 meq/L (22-26); ARTERIAL BLOOD GAS PCO2 56.6 mmHg (35-45); ARTERIAL BLOOD GAS PO2 52.8 mmHg (80-100); ARTERIAL BLOOD GAS pH 7.35 (7.35-7.45)
[2021-01-15 05:41] LABS: BASO % 0.2 % (0.0-2.0); EOS # 0.2 (0.0-0.7); EOS % 2.1 % (0-4.0); GRAN # 8.7 (1.4-6.5); LYMPH # 0.5 (1.2-3.4); LYMPH % 5.4 % (20.0-51.0); MEAN CELL VOLUME 100 fl (80.0-100.0); MEAN CORPUSCULAR HGB CONC 30 g/dl (33.0-37.0); MEAN PLATELET VOLUME 12.3 fl (7.4-10.4); MONO # 0.2 (0.1-0.6); MONO % 2.4 % (1.7-9.3); PLATELET COUNT 109 K/mm3 (130-400); RED BLOOD COUNT 3.03 M/mm3 (4.10-5.30); REDCELL DISTRIBUTION WIDTH-CV 12.8 % (11.5-14.5)
[2021-01-15 05:47] LABS: HEMATOCRIT 30.4 % (37.0-47.0); MEAN CORPUSCULAR HEMOGLOBIN 30 pg (27.0-31.0)
[2021-01-15 05:54] LABS: CALCIUM 8.2 mg/dL (8.4-10.2); CREATININE, serum 1.39 (0.52-1.25); MAGNESIUM 2.6 mg/dL (1.6-2.3); PHOSPHOROUS 5.2 mg/dL (2.5-4.5); POTASSIUM 4.3 mmol/L (3.4-5.0)
--- NOTE | 2021-01-15 05:55 | NUR ---
Sedation vacation not performed due to being proned.
--- NOTE | 2021-01-15 07:24 | NUR ---
Report given to BJ Gomez. Patient care transfered.
--- NOTE | 2021-01-15 07:26 | NUR ---
Report given to BJ Gomez. Patient care transfered.
--- NOTE | 2021-01-15 10:50 | NUR ---
Spouse, Gerardo, here to visit. Chaplain Freed and Lolis Rodrigez RN in with patient and spouse. Emotional support provided and questions answered.
--- NOTE | 2021-01-15 11:18 | NUR ---
Initial visit; Prayer request by Gerardo for Emilie and their family. Life Skills Coach also offered the 23rd Psalm. Family knows Life Skills Coach is available for follow-up.
--- NOTE | 2021-01-15 14:18 | NUR ---
During rounds, Dr. Valdovinos and Lolis, Palliative RN contacted patient's , Gerardo to provide update. The team offered to have Gerardo visit patient and Gerardo advised he isn't sure at this time if he wants to see patient in this condition. Later that morning, Gerardo contacted ANAYA to advise he was in the ED parking lot and wanted to see patient. ANAYA notified BJ Gomez who met patient in the ED and brought him into the ICU. ANAYA will continue to follow.
--- NOTE | 2021-01-15 14:31 | NUR ---
Phone call with Gerardo made by Dr Valdovinos and I also participated. Gerardo is aware that Emilie is not doing well, is not showing improvement and is at near maximum levels of support. Gerardo was offered the chance to come in to see Emilie which he initially declined but then later showed up and did visit her. He did not think that she "even knew I was there". Support was provided by chaplain Rasta, and also his nurse Patricia and this nurse Lolis. We did talk about that we do reach a point where we are no longer supporting her fight and instead we are prolonging her suffering. Gerardo did acknowledge this but states he wants to talk with his children again before making a decision. When he reaches a decision, he will call and talk with her nurse. Support provided. Reinforced that this is a difficult decision and one that he needs to be sure of.
--- NOTE | 2021-01-15 18:30 | NUR ---
Have spoken with spouse on and off this afternoon. Called at this time to let him know [facility] declined patient transfer at this time. This RN was notified by Dr. Valdovinos. Also let spouse, Gerardo, know someone dropped off a card with wilkes in it for him. Agreed with putting it in the safe and will nut picker tomorrow. Will call before coming to nut picker.
--- NOTE | 2021-01-15 22:35 | NUR ---
Levophed initiated due to MAP's consistenly below 65. Will continue to monitor.
[2021-01-16] VITALS (791 sets, daily range): BP systolic 93–120; BP diastolic 52–73; PULSE 98–119; TEMP 97.8–100.6; O2SAT 30–100
[2021-01-16 05:03] LABS: MEAN CELL VOLUME 99 fl (80.0-100.0); MEAN CORPUSCULAR HGB CONC 30 g/dl (33.0-37.0); MEAN PLATELET VOLUME 12.6 fl (7.4-10.4); PLATELET COUNT 104 K/mm3 (130-400); RED BLOOD COUNT 2.98 M/mm3 (4.10-5.30); REDCELL DISTRIBUTION WIDTH-CV 12.8 % (11.5-14.5)
[2021-01-16 05:08] LABS: HEMATOCRIT 29.5 % (37.0-47.0); HEMOGLOBIN 8.9 g/dl (12.5-16.0); MEAN CORPUSCULAR HEMOGLOBIN 30 pg (27.0-31.0)
--- NOTE | 2021-01-16 05:09 | NUR ---
Sedation vacation not performed due to being proned.
[2021-01-16 05:13] LABS: CALCIUM 8.3 mg/dL (8.4-10.2); CREATININE, serum 1.94 (0.52-1.25); POTASSIUM 3.6 mmol/L (3.4-5.0)
[2021-01-16 05:50] LABS: BAND 24 % (0-10); LYMPHOCYTE 11 % (20.0-51.0); NEUTROPHILS 61 % (42.0-75.2)
[2021-01-16 05:51] LABS: HYPOCHROMIA 3+; PLATELET ESTIMATE DECREASED (NORMAL)
[2021-01-16 06:04] LABS: ARTERIAL BLD GAS O2 SATURATION 93.2 % (92-100); ARTERIAL BLOOD GAS BASE EXCESS 4.1 (-2-2); ARTERIAL BLOOD GAS HCO3 29.4 meq/L (22-26); ARTERIAL BLOOD GAS PCO2 49.3 mmHg (35-45); ARTERIAL BLOOD GAS PO2 71.1 mmHg (80-100); ARTERIAL BLOOD GAS pH 7.39 (7.35-7.45)
--- NOTE | 2021-01-16 06:53 | NUR ---
PT DOESNT QUALIFY FOR WEAN TRIAL AT THIS TIME PT ON TOO HIGH OF SETTINGS. PT ON DOCUMENTED SETTINGS YULIA WELL WITH NO DISTRESS NOTED AT THIS TIME.
--- NOTE | 2021-01-16 07:31 | NUR ---
Report given to BJ Nelson and BJ Woods. Patient care transfered.
--- NOTE | 2021-01-16 09:15 | NUR ---
Contacted by nursing staff for PICC dressing change. upper edge of dressing not intact. insertion site dressing intact. PICC dressing change done with sterile technique right upper arm sterile dressing change done with insertion site cleansed with chloraprep x 1, chlorhexidine impregnate disk applied, skin prep, stat lock, and tegaderm applied. bilateral arms swollen. right hand swollen.
--- NOTE | 2021-01-16 10:06 | NUR ---
Phone call placed to Gerardo Hopkins regarding his decision regarding Emilie's care. He did agree to talk with his children about a family video call and will call back if this is something he desires. Shayna did give him an update on Emilie's status today as she is now requiring pressors, worsening kidney function, and continued high 02 and pressure needs.
--- NOTE | 2021-01-16 13:07 | NUR ---
Llois, Palliative RN and Shayna, ICU Director contacted patient's Gerardo to provide update. Gerardo advised patient's children are still wanting patient to fight and get better. Shayna suggested a zoom meeting so that the children can see the patient. Gerardo advised he will talk with his kids and follow up.
--- NOTE | 2021-01-16 13:30 | NUR ---
Spoke to Gerardo, patients . He had questions about comfort care measures. They were explained to him and he said he will be talking to his children so they can make a decsion today.
--- NOTE | 2021-01-16 14:08 | NUR ---
Notified that patients axillary temp was 100.6. Will continue to monitor at this time/.
--- NOTE | 2021-01-16 17:30 | NUR ---
SPoke to Gerardo, patients , he decided to go proceed with comfort care measures tonight. He said he could be at the hospital in about an hour. Notified , , ICU charge nurse and Shayna. is ordering comfort care medications.
--- NOTE | 2021-01-16 18:04 | NUR ---
PATIENT WILL BE GOING COMFORT CARE SOON.
--- NOTE | 2021-01-16 18:25 | NUR ---
Gerardo, patients here. GAve him a new mask, helped him appropriately don a gown and gloves and walked him into room.
--- NOTE | 2021-01-16 18:47 | NUR ---
RT at bedside. IV gtts turned off, PRN morphine and ativan given. Patient extubated by RT.
--- NOTE | 2021-01-16 19:02 | NUR ---
Time of confirmed with BJ Woods.
--- NOTE | 2021-01-16 19:10 | NUR ---
Gave patient belonings to , including purple suitcase and money that was sent to the safe. Walked out to the ER entrance.
--- NOTE | 2021-01-16 19:15 | NUR ---
Notified house mover of patients .
--- NOTE | 2021-01-16 19:26 | NUR ---
patient going comfort care.
--- NOTE | 2021-01-16 19:26 | NUR ---
patient going comfort care.
--- NOTE | 2021-01-16 19:27 | NUR ---
patient going comfort care.
--- NOTE | 2021-01-16 20:00 | NUR ---
TN notified of patient's TOD 190. Patient not a candidate for donation #[phone].
--- NOTE | 2021-01-16 21:16 | NUR ---
[facility]. PT TRANSFERRED FROM ICU BED TO HOME CART. PT AND HOME EMPLOYEE ESCORTED OUT AT THIS TIME.
== END 2021-01-16 21:17 | disposition expired | DRG 207 ==
LOC: COL.ER 11:15 → MEDICAL 14:19 → ICU 01-05 14:01
PROVIDERS: Family Medicine; Hospitalist; Internal Medicine Critical Care Medicine; Internal Medicine Nephrology; Internal Medicine Pulmonary Disease; Internal Medicine Sleep Medicine; Nurse Practitioner Family; Student in an Organized Health Care Education/Training Program; ADMIT Internal Medicine
PROC: XW033E5 Introduction of Remdesivir Anti-infective into Peripheral Vein, Percutaneous Approach, New Technology Group 5 (ICD-10-PCS; principal; 2021-01-03)
PROC: 02HV33Z Insertion of Infusion Device into Superior Vena Cava, Percutaneous Approach (ICD-10-PCS; 2021-01-03)
PROC: 5A1955Z Respiratory Ventilation, Greater than 96 Consecutive Hours (ICD-10-PCS; 2021-01-05)
PROC: 0BH17EZ Insertion of Endotracheal Airway into Trachea, Via Natural or Artificial Opening (ICD-10-PCS; 2021-01-05)
PROC: XW14325 Transfusion of Convalescent Plasma (Nonautologous) into Central Vein, Percutaneous Approach, New Technology Group 5 (ICD-10-PCS; 2021-01-09)
DX: U07.1 COVID-19 (principal); J96.01 Acute respiratory failure with hypoxia; N17.9 Acute kidney failure, unspecified; E87.2 Acidosis; I95.9 Hypotension, unspecified; F32.9 Major depressive disorder, single episode, unspecified; F41.9 Anxiety disorder, unspecified; D69.6 Thrombocytopenia, unspecified; E78.5 Hyperlipidemia, unspecified; E04.1 Nontoxic single thyroid nodule; Z66 Do not resuscitate; Z90.710 Acquired absence of both cervix and uterus; Z90.49 Acquired absence of other specified parts of digestive tract; E11.649 Type 2 diabetes mellitus with hypoglycemia without coma
CPT/HCPCS: 99222-AI; 99232-AI; 99233-AI; A9284; C1751; J0330; J0692; J0696; J1100; J1650; J1815; J2060; J2250; J2270; J2370; J2405; J2550; J2704; J2765; J3010; J7030; J7050; J7060; J8540; Q9967